=== PATIENT | female | born 1970 | race Two or more races ===

== ENCOUNTER → 2017-05-07 | Outpatient (CLI) | payer OTHER | LOC: CIMAGING 15:25 | PROVIDERS: ATTEND Family Medicine | DX: Z20.1 Contact with and (suspected) exposure to tuberculosis (principal) | CPT/HCPCS: 71020-PO ==

== ENCOUNTER → 2018-08-08 | Outpatient (CLI) | payer OTHER | LOC: CIMAGING 07:25 | PROVIDERS: ATTEND Family Medicine | DX: Z12.31 Encounter for screening mammogram for malignant neoplasm of breast (principal) ==

== ENCOUNTER → 2018-08-29 | Outpatient (CLI) | payer OTHER | LOC: CIMAGING 13:36 | PROVIDERS: ATTEND Family Medicine | DX: R92.8 Other abnormal and inconclusive findings on diagnostic imaging of breast (principal) | CPT/HCPCS: 76641-PO ==